=== PATIENT | female | born 1950 | race Caucasian/White ===

== ENCOUNTER → 2016-05-16 | Outpatient (CLI) | payer MEDICARE, OTHER ==
[2016-05-16 12:13] LABS: Basophils # (auto) 0 uL; Basophils % (auto) 0.5 % (0.0-2.0); Eosinophils # (auto) 0.1 uL; Hemoglobin 14.1 g/dL (12.2-16.2); Lymphocytes # (auto) 1.6 uL; Lymphocytes % (auto) 24.7 % (10.0-50.0); Mean Corpuscular Hemoglobin 31.1 pg (28.0-32.0); Mean Corpuscular Hgb Conc. 32.7 g/dL (32.0-36.0); Mean Corpuscular Volume 95.2 fL (80.0-100.0); Mean Platelet Volume 10.3 fL (7.4-10.4); Monocytes # (auto) 0.5 uL; Monocytes % (auto) 7.1 % (0.0-12.0); Neutrophils # (auto) 4.3 uL; Neutrophils % (auto) 65.7 % (37.0-80.0); Platelet Count (auto) 275 10^3/uL (140-450); Red Cell Distribution Width 13.9 % (11.6-16.0); SUSPECT VIEW TRANSMISSION; White Blood Cell 6.6 10^3/uL (4.4-10.8)
[2016-05-16 14:30] LABS: Albumin 4.1 g/dL (3.4-5.0); BUN/Creatinine Ratio 29.1; Bilirubin, Direct 0.2 mg/dL (0-0.2); Calcium 10.3 mg/dL (8.5-10.1); Potassium 4.5 mmol/L (3.5-5.1)
== END | disposition home or self-care (01) ==
LOC: LAB 08:31
PROVIDERS: ATTEND Internal Medicine Cardiovascular Disease
DX: I10 Essential (primary) hypertension (principal); E78.00 Pure hypercholesterolemia, unspecified; K74.1 Hepatic sclerosis; E11.9 Type 2 diabetes mellitus without complications; E03.9 Hypothyroidism, unspecified; D64.9 Anemia, unspecified; E55.9 Vitamin D deficiency, unspecified; N39.0 Urinary tract infection, site not specified
CPT/HCPCS: 36415; 80048; 80061; 80076; 82306; 83036; 84443; 85025

== ENCOUNTER → 2017-05-08 | Outpatient (CLI) | payer MEDICARE ==
[2017-05-08 12:26] LABS: Basophils # (auto) 0 uL; Basophils % (auto) 0.6 % (0.0-2.0); Eosinophils # (auto) 0.3 uL; Eosinophils % (auto) 3.9 % (0.0-7.0); Hemoglobin 14.8 g/dL (12.2-16.2); Lymphocytes # (auto) 1.8 uL; Lymphocytes % (auto) 28.4 % (10.0-50.0); Mean Corpuscular Hemoglobin 33.1 pg (28.0-32.0); Mean Corpuscular Hgb Conc. 33.6 g/dL (32.0-36.0); Mean Corpuscular Volume 98.4 fL (80.0-100.0); Monocytes # (auto) 0.4 uL; Monocytes % (auto) 6.1 % (0.0-12.0); Nucleated Red Blood Cells % 0.7 %; Platelet Count (auto) 234 10^3/uL (140-450); Red Blood Cells 4.47 10^6/uL (4.0-5.20); Red Cell Distribution Width 13.3 % (11.8-14.3); White Blood Cell 6.5 10^3/uL (4.4-10.8)
[2017-05-08 12:41] LABS: Albumin 4.1 g/dL (3.4-5.0); Bilirubin, Total 0.8 mg/dL (0.2-1.0); Calcium 9.2 mg/dL (8.5-10.1); Potassium 4.3 mmol/L (3.5-5.1); Total Protein 7.7 g/dL (6.4-8.2)
[2017-05-08 13:06] LABS: Free T4 (Free Thyroxine) 1.04 ng/dL (0.89-1.76)
== END | disposition home or self-care (01) ==
LOC: CHF HDHVI 08:08
PROVIDERS: ATTEND Internal Medicine Cardiovascular Disease
DX: E78.5 Hyperlipidemia, unspecified (principal); D64.9 Anemia, unspecified; I10 Essential (primary) hypertension; E03.9 Hypothyroidism, unspecified; E55.9 Vitamin D deficiency, unspecified; E11.9 Type 2 diabetes mellitus without complications; D51.9 Vitamin B12 deficiency anemia, unspecified; K74.1 Hepatic sclerosis
CPT/HCPCS: 36415; 80053; 80061; 82306; 82607; 83036; 84439; 84443; 85025

== ENCOUNTER → 2018-04-01 | Outpatient (CLI) | payer MEDICARE | END | disposition home or self-care (01) | LOC: Rad HDHVI 11:05 | PROVIDERS: ATTEND Internal Medicine Cardiovascular Disease | DX: I34.0 Nonrheumatic mitral (valve) insufficiency (principal); I11.9 Hypertensive heart disease without heart failure; Z95.0 Presence of cardiac pacemaker | CPT/HCPCS: 93306 ==

== ENCOUNTER → 2018-04-09 | Outpatient (CLI) | payer MEDICARE ==
[~2018-04-09] VITALS: Ht 167.6 cm; Wt 124.7 kg
[~2018-04-09] MED LIST: ADENOSINE 105 MG in GIVE UN-DILUTED 0 ML IV ONE; ADENOSINE 90 MG/30 ML INJ IV ONE
[2018-04-09 12:17] LABS: Basophils # (auto) 0.1 uL; Eosinophils # (auto) 0.1 uL; Eosinophils % (auto) 1.8 % (0.0-7.0); Hematocrit 42.1 % (36.0-46.0); Hemoglobin 13.9 g/dL (12.2-16.2); Lymphocytes # (auto) 1.2 uL; Lymphocytes % (auto) 20.8 % (10.0-50.0); Mean Corpuscular Hemoglobin 32.5 pg (28.0-32.0); Mean Corpuscular Volume 98.5 fL (80.0-100.0); Monocytes # (auto) 0.4 uL; Monocytes % (auto) 7.8 % (0.0-12.0); Neutrophils # (auto) 3.8 uL; Neutrophils % (auto) 68.6 % (37.0-80.0); Nucleated Red Blood Cells % 0.2 %; Platelet Count (auto) 184 10^3/uL (140-450); Red Blood Cells 4.27 10^6/uL (4.0-5.20); Red Cell Distribution Width 13.7 % (11.8-14.3); White Blood Cell 5.6 10^3/uL (4.4-10.8)
[2018-04-09 12:18] LABS: Urine Blood Negative /uL (Negative); Urine Specific Gravity 1.025 (1.001-1.035)
[2018-04-09 12:32] LABS: Potassium 4.3 mmol/L (3.5-5.1)
[2018-04-09 12:34] LABS: Free T4 (Free Thyroxine) 1.41 ng/dL (0.89-1.76)
[2018-04-09 12:46] LABS: BUN/Creatinine Ratio 27.3; Bilirubin, Total 0.7 mg/dL (0.2-1.0); Calcium 9.4 mg/dL (8.5-10.1); Total Protein 7.6 g/dL (6.4-8.2)
== END | disposition home or self-care (01) ==
LOC: Rad HDHVI 08:25
PROVIDERS: ATTEND Internal Medicine Cardiovascular Disease
DX: I10 Essential (primary) hypertension (principal); E78.5 Hyperlipidemia, unspecified; F41.8 Other specified anxiety disorders; E03.9 Hypothyroidism, unspecified; E11.9 Type 2 diabetes mellitus without complications; E55.9 Vitamin D deficiency, unspecified; D51.9 Vitamin B12 deficiency anemia, unspecified; N39.0 Urinary tract infection, site not specified; Z95.0 Presence of cardiac pacemaker; Z68.41 Body mass index [BMI] 40.0-44.9, adult
CPT/HCPCS: 36415; 78452; 80053; 80061; 81003; 82306; 82607; 83036; 84439; 84443; 85025; 87086; 93005; 96374; 96375; A9500; J0153

== ENCOUNTER → 2018-05-02 | Outpatient (CLI) | payer MEDICARE ==
[~2018-05-02] MED LIST changes: -ADENOSINE 105 MG in GIVE UN-DILUTED 0 ML IV ONE; -ADENOSINE 90 MG/30 ML INJ IV ONE; +ATOR20TA PO; +LISI-285 PO; +RIVA20TA PO; +SERT-274 PO
[2018-05-02 10:27] VITALS: BP 148/78
[2018-05-02 10:43] VITALS: BP 160/86
--- NOTE | 2018-05-02 10:43 | NUR ---
Pre-Op Discharge Summary: See e-MAR for any medications given for this visit. Pre-op orders received and carried out per MD of EKG, LABS and chest xrays. Patient given a copy of EKG with instructions to go to [facility] out patient for further follow up care.
[2018-05-02 11:28] LABS: Basophils # (auto) 0 uL; Basophils % (auto) 0.4 % (0.0-2.0); Eosinophils # (auto) 0.2 uL; Eosinophils % (auto) 2.2 % (0.0-7.0); Hematocrit 43.4 % (36.0-46.0); Hemoglobin 14.4 g/dL (12.2-16.2); Lymphocytes # (auto) 1.7 uL; Lymphocytes % (auto) 22.9 % (10.0-50.0); Mean Corpuscular Hemoglobin 32.7 pg (28.0-32.0); Mean Corpuscular Hgb Conc. 33.2 g/dL (32.0-36.0); Mean Corpuscular Volume 98.4 fL (80.0-100.0); Monocytes # (auto) 0.4 uL; Monocytes % (auto) 5.4 % (0.0-12.0); Neutrophils # (auto) 5.2 uL; Neutrophils % (auto) 69.1 % (37.0-80.0); Nucleated Red Blood Cells % 0.2 %; Platelet Count (auto) 217 10^3/uL (140-450); Red Blood Cells 4.41 10^6/uL (4.0-5.20); Red Cell Distribution Width 13.8 % (11.8-14.3); White Blood Cell 7.6 10^3/uL (4.4-10.8)
[2018-05-02 11:36] LABS: BUN/Creatinine Ratio 22.1; Calcium 9.2 mg/dL (8.5-10.1); Potassium 4.5 mmol/L (3.5-5.1)
[2018-05-02 11:53] LABS: INR 1.15 (0.9-1.15); Partial Thromboplastin Time 35.5 sec (23.78-33.04); Prothrombin Time 12.2 sec (9.27-12.13)
== END | disposition home or self-care (01) ==
LOC: Rad HDHVI 10:03
PROVIDERS: ATTEND Internal Medicine Cardiovascular Disease
DX: Z01.818 Encounter for other preprocedural examination (principal); D64.9 Anemia, unspecified; R79.1 Abnormal coagulation profile; I70.0 Atherosclerosis of aorta; E78.5 Hyperlipidemia, unspecified; I11.9 Hypertensive heart disease without heart failure
CPT/HCPCS: 36415; 71046; 80048; 85025; 85610; 85730; 93005; G0463

== ENCOUNTER 2018-05-08 08:54 | Day surgery (SDC) | payer MEDICARE ==
[~2018-05-08] VITALS: Ht 167.6 cm; Wt 127.0 kg
[2018-05-08] MEDS ORDERED: LIDOCAINE 2%HCL (LOCAL ANESTH.) INJ 20ML MDV ONE (12:10)
[2018-05-08] MEDS ORDERED: IOHEXOL 350 MG/ML 100ML IJ ONE (12:10)
[2018-05-08] MEDS ORDERED: ANGIOMAX 250 MG VIAL IV ONE (12:15)
[2018-05-08] MEDS ORDERED: fentaNYL CITRATE 100 MCG/2 ML VL ONE (12:15)
[2018-05-08] MEDS ORDERED: MIDAZOLAM HCL 1MG/1ML-2 ML VIAL ONE (12:16)
[2018-05-08] MEDS ORDERED: SODIUM CHL 0.9% 0 ML ONE (12:16)
== END 2018-05-08 15:10 | disposition home or self-care (01) ==
LOC: CATH 08:54
PROVIDERS: ATTEND Internal Medicine Cardiovascular Disease
DX: I25.10 Atherosclerotic heart disease of native coronary artery without angina pectoris (principal); I48.91 Unspecified atrial fibrillation; I10 Essential (primary) hypertension; H33.8 Other retinal detachments; Z98.890 Other specified postprocedural states
CPT/HCPCS: 93458; A6257; C1760; C1894; J1644; J2250; J3010; J7030; Q9967; 99152

== ENCOUNTER → 2019-03-09 | Outpatient (CLI) | payer MEDICARE ==
[2019-03-09 12:24] LABS: Urine Blood Negative /uL (Negative); Urine Specific Gravity 1.012 (1.001-1.035)
[2019-03-09 12:33] LABS: Basophils # (auto) 0 uL; Basophils % (auto) 0.5 % (0.0-2.0); Eosinophils # (auto) 0.1 uL; Eosinophils % (auto) 1.7 % (0.0-7.0); Hematocrit 41.6 % (36.0-46.0); Hemoglobin 13.9 g/dL (12.2-16.2); Lymphocytes # (auto) 1.6 uL; Lymphocytes % (auto) 25.1 % (10.0-50.0); Mean Corpuscular Hemoglobin 33.1 pg (28.0-32.0); Mean Corpuscular Hgb Conc. 33.4 g/dL (32.0-36.0); Mean Corpuscular Volume 99.1 fL (80.0-100.0); Monocytes # (auto) 0.4 uL; Monocytes % (auto) 6.6 % (0.0-12.0); Neutrophils # (auto) 4.1 uL; Neutrophils % (auto) 66.1 % (37.0-80.0); Nucleated Red Blood Cells % 0.2 %; Platelet Count (auto) 208 10^3/uL (140-450); Red Cell Distribution Width 13.4 % (11.8-14.3); White Blood Cell 6.2 10^3/uL (4.4-10.8)
[2019-03-09 12:46] LABS: Free T4 (Free Thyroxine) 1.23 ng/dL (0.89-1.76)
[2019-03-09 12:48] LABS: Potassium 4.7 mmol/L (3.5-5.1)
[2019-03-09 12:58] LABS: Albumin 3.9 g/dL (3.4-5.0); BUN/Creatinine Ratio 37.7; Bilirubin, Total 0.5 mg/dL (0.2-1.0); Calcium 9.7 mg/dL (8.5-10.1); Total Protein 7.5 g/dL (6.4-8.2)
== END | disposition home or self-care (01) ==
LOC: LAB 08:44
PROVIDERS: ATTEND Internal Medicine Cardiovascular Disease
DX: E03.9 Hypothyroidism, unspecified (principal); K90.9 Intestinal malabsorption, unspecified; N39.0 Urinary tract infection, site not specified; D51.9 Vitamin B12 deficiency anemia, unspecified; Z79.899 Other long term (current) drug therapy
CPT/HCPCS: 36415; 80053; 80061; 81003; 82306; 82607; 83036; 84439; 84443; 85025

== ENCOUNTER → 2019-11-06 | Outpatient (CLI) | payer MEDICARE ==
[~2019-11-06] MED LIST changes: +LISI-706 PO
[2019-11-06 10:40] VITALS: BP 135/59
[2019-11-06 11:01] VITALS: BP 140/51
[2019-11-06 12:36] LABS: Calcium 9.2 mg/dL (8.5-10.1); Potassium 4.3 mmol/L (3.5-5.1)
[2019-11-06 12:38] LABS: Basophils # (auto) 0 10 ^3/uL (0-0.2); Basophils % (auto) 0.4 % (0.0-2.0); Eosinophils # (auto) 0.1 10 ^3/uL (0-0.8); Hematocrit 41.8 % (36.0-46.0); Hemoglobin 14.2 g/dL (12.2-16.2); Lymphocytes # (auto) 2.1 10 ^3/uL (0.4-5.4); Mean Corpuscular Hgb Conc. 33.9 g/dL (32.0-36.0); Mean Corpuscular Volume 100.3 fL (80.0-100.0); Monocytes # (auto) 0.5 10 ^3/uL (0-1.3); Monocytes % (auto) 5.9 % (0.0-12.0); Neutrophils # (auto) 5.6 10 ^3/uL (1.6-8.6); Neutrophils % (auto) 67.7 % (37.0-80.0); Nucleated Red Blood Cells % 0.1 %; Platelet Count (auto) 223 10^3/uL (140-450); Red Blood Cells 4.16 10^6/uL (4.0-5.20); Red Cell Distribution Width 13.4 % (11.8-14.3); White Blood Cell 8.2 10^3/uL (4.4-10.8)
[2019-11-06 12:40] LABS: BUN/Creatinine Ratio 22.5
[2019-11-06 12:56] LABS: INR 1.35 (0.9-1.15); Partial Thromboplastin Time 39.6 sec (23.0-31.2)
== END | disposition home or self-care (01) ==
LOC: Rad HDHVI 10:12
PROVIDERS: ATTEND Internal Medicine Cardiovascular Disease
DX: Z01.812 Encounter for preprocedural laboratory examination (principal); I70.0 Atherosclerosis of aorta; I10 Essential (primary) hypertension; Z45.018 Encounter for adjustment and management of other part of cardiac pacemaker; I48.91 Unspecified atrial fibrillation
CPT/HCPCS: 36415; 71046; 80048; 85025; 85610; 85730; 93005; G0463

== ENCOUNTER 2019-11-12 07:54 | Day surgery (SDC) | payer MEDICARE ==
[~2019-11-12] VITALS: Ht 167.6 cm; Wt 129.3 kg
[~2019-11-12 07:54] MED LIST changes: -LISI-285 PO
[2019-11-12] MEDS ORDERED: VANCOMYCIN 1GM/250ML 250 ML IV ONE ×2 (08:45→10:41)
[2019-11-12] MEDS ORDERED: LIDOCAINE 2%HCL (LOCAL ANESTH.) INJ 20ML MDV ONE (10:37)
[2019-11-12] MEDS ORDERED: diphenhdrAMINE HCL 50 MG/1 ML VL ONE (10:49)
[2019-11-12] MEDS ORDERED: VANCOMYCIN HCL 1000 MG VL ONE (10:49)
[2019-11-12] MEDS ORDERED: MIDAZOLAM HCL 1MG/1ML-2 ML VIAL ONE (10:50)
[2019-11-12] MEDS ORDERED: fentaNYL CITRATE 100 MCG/2 ML VL ONE (10:50)
[2019-11-12] MEDS ORDERED: HYDROcodone-ACET 5/325MG TAB PO PRN (12:15)
[2019-11-12] MEDS ORDERED: ceFAZolin 1GM/50ML 50 ML IV SCH (12:15)
[2019-11-12] MEDS ORDERED: ONDANSETRON HCL 4 MG/2 ML VIAL IV PRN (12:15)
[2019-11-12] MEDS ORDERED: ACETAMINOPHEN 325 MG TAB PO PRN (12:15)
== END 2019-11-12 13:39 | disposition home or self-care (01) ==
LOC: CATH 07:54
PROVIDERS: ATTEND Internal Medicine Cardiovascular Disease
DX: Z45.010 Encounter for checking and testing of cardiac pacemaker pulse generator [battery] (principal); I11.9 Hypertensive heart disease without heart failure; I49.5 Sick sinus syndrome; I48.20 Chronic atrial fibrillation, unspecified; E78.5 Hyperlipidemia, unspecified; E66.9 Obesity, unspecified; G47.30 Sleep apnea, unspecified; E11.9 Type 2 diabetes mellitus without complications; M19.90 Unspecified osteoarthritis, unspecified site; Z98.890 Other specified postprocedural states; Z20.828 Contact with and (suspected) exposure to other viral communicable diseases
CPT/HCPCS: 33228; C1785; J0690; J2250; J3010; J3370; U0003; 99152; 99153

== ENCOUNTER → 2019-11-24 | Outpatient (CLI) | payer MEDICARE | END | disposition home or self-care (01) | LOC: Rad HDHVI 14:59 | PROVIDERS: ATTEND Internal Medicine Cardiovascular Disease | DX: I48.19 Other persistent atrial fibrillation (principal); R06.02 Shortness of breath | CPT/HCPCS: 93306 ==

== ENCOUNTER → 2019-11-26 | Outpatient (CLI) | payer MEDICARE ==
[~2019-11-26] VITALS: Ht 167.6 cm; Wt 132.9 kg
[~2019-11-26] MED LIST changes: +ADENOSINE 112 MG in GIVE UN-DILUTED 0 ML IV ONE; +ADENOSINE 90 MG/30 ML INJ IV ONE
== END | disposition home or self-care (01) ==
LOC: Rad HDHVI 13:31
PROVIDERS: ATTEND Internal Medicine Cardiovascular Disease
DX: I11.0 Hypertensive heart disease with heart failure (principal); I50.43 Acute on chronic combined systolic (congestive) and diastolic (congestive) heart failure; I48.19 Other persistent atrial fibrillation; I49.5 Sick sinus syndrome; E78.5 Hyperlipidemia, unspecified; R06.02 Shortness of breath; Z95.0 Presence of cardiac pacemaker; Z82.49 Family history of ischemic heart disease and other diseases of the circulatory system
CPT/HCPCS: 78452; 93005; 96374; 96375; A9500; J0153

== ENCOUNTER → 2022-03-06 | Outpatient (CLI) | payer MEDICARE ==
[~2022-03-06] MED LIST changes: -ADENOSINE 112 MG in GIVE UN-DILUTED 0 ML IV ONE; -ADENOSINE 90 MG/30 ML INJ IV ONE; -SERT-274 PO; +SERT50TA19 PO
== END | disposition home or self-care (01) ==
LOC: Rad HDHVI 10:00
PROVIDERS: ATTEND Internal Medicine Cardiovascular Disease
DX: I08.1 Rheumatic disorders of both mitral and tricuspid valves (principal); R06.02 Shortness of breath; I10 Essential (primary) hypertension
CPT/HCPCS: 93306

== ENCOUNTER → 2022-03-20 | Outpatient (CLI) | payer MEDICARE ==
[2022-03-20 12:01] LABS: Basophils # (auto) 0 10 ^3/uL (0-0.2); Basophils % (auto) 0.5 % (0.0-2.0); Eosinophils # (auto) 0.1 10 ^3/uL (0-0.8); Eosinophils % (auto) 1.9 % (0.0-7.0); Hemoglobin 14.2 g/dL (12.2-16.2); Lymphocytes % (auto) 27.4 % (10.0-50.0); Mean Corpuscular Hemoglobin 32.5 pg (28.0-32.0); Mean Corpuscular Volume 98.6 fL (80.0-100.0); Monocytes # (auto) 0.5 10 ^3/uL (0-1.3); Monocytes % (auto) 6.3 % (0.0-12.0); Neutrophils # (auto) 4.7 10 ^3/uL (1.6-8.6); Neutrophils % (auto) 63.9 % (37.0-80.0); Nucleated Red Blood Cells % 0.1 %; Red Blood Cells 4.37 10^6/uL (4.0-5.20); Red Cell Distribution Width 13.8 % (11.8-14.3); White Blood Cell 7.3 10^3/uL (4.4-10.8)
[2022-03-20 13:50] LABS: Free T4 (Free Thyroxine) 1.37 ng/dL (0.89-1.76)
[2022-03-20 15:15] LABS: Potassium 4.2 mmol/L (3.5-5.1)
[2022-03-20 15:33] LABS: BUN/Creatinine Ratio 27.1; Bilirubin, Total 0.6 mg/dL (0.2-1.0); Calcium 9.6 mg/dL (8.5-10.1); Total Protein 7.1 g/dL (6.4-8.2)
== END | disposition home or self-care (01) ==
LOC: LAB 08:13
PROVIDERS: ATTEND Internal Medicine Cardiovascular Disease
DX: I50.23 Acute on chronic systolic (congestive) heart failure (principal); E55.9 Vitamin D deficiency, unspecified
CPT/HCPCS: 80053; 80061; 82306; 82607; 83036; 84439; 84443

== ENCOUNTER → 2023-03-04 | Outpatient (CLI) | payer MEDICARE ==
[~2023-03-04] VITALS: Ht 167.6 cm; Wt 129.3 kg
[~2023-03-04] MED LIST changes: +ADENOSINE 109 MG in GIVE UN-DILUTED 0 ML IV ONE; +ADENOSINE 90 MG/30 ML INJ IV ONE; +SERT-206 PO; -SERT50TA19 PO
== END | disposition home or self-care (01) ==
LOC: Rad HDHVI 09:58
PROVIDERS: ATTEND Internal Medicine Cardiovascular Disease
DX: I11.0 Hypertensive heart disease with heart failure (principal); I50.33 Acute on chronic diastolic (congestive) heart failure; R06.02 Shortness of breath; I48.20 Chronic atrial fibrillation, unspecified; I49.5 Sick sinus syndrome; I25.10 Atherosclerotic heart disease of native coronary artery without angina pectoris; E78.00 Pure hypercholesterolemia, unspecified; Z82.49 Family history of ischemic heart disease and other diseases of the circulatory system
CPT/HCPCS: 78452; 93005; 96374; 96375; A9500; J0153

== ENCOUNTER → 2024-04-02 | Outpatient (CLI) | payer MEDICARE ==
[~2024-04-02] MED LIST changes: -ADENOSINE 109 MG in GIVE UN-DILUTED 0 ML IV ONE; -ADENOSINE 90 MG/30 ML INJ IV ONE
== END | disposition home or self-care (01) ==
LOC: Rad HDHVI 12:59
PROVIDERS: ATTEND Internal Medicine Cardiovascular Disease
DX: I11.0 Hypertensive heart disease with heart failure (principal); I50.33 Acute on chronic diastolic (congestive) heart failure
CPT/HCPCS: 93306

== ENCOUNTER → 2024-05-06 | Outpatient (CLI) | payer MEDICARE | END | disposition home or self-care (01) | LOC: Rad HDHVI 13:55 | PROVIDERS: ATTEND Internal Medicine Cardiovascular Disease | DX: R07.89 Other chest pain (principal); I10 Essential (primary) hypertension; E78.5 Hyperlipidemia, unspecified | CPT/HCPCS: 93880 ==

== ENCOUNTER 2024-12-01 09:01 | Outpatient (CLI) | payer MEDICARE ==
[~2024-12-01] VITALS: Ht 165.1 cm; Wt 113.4 kg
[2024-12-01] MEDS ORDERED: ADENOSINE 90 MG/30 ML INJ IV ONE (09:28)
[2024-12-01] MEDS ORDERED: ADENOSINE 65 MG in GIVE UN-DILUTED 0 ML IV ONE (13:15)
[2024-12-01] MEDS ORDERED: ADENOSINE 95 MG in GIVE UN-DILUTED 0 ML IV ONE (13:45)
== END 2024-12-01 17:00 | disposition home or self-care (01) ==
LOC: Rad HDHVI 09:01
PROVIDERS: ATTEND Internal Medicine Cardiovascular Disease
DX: Z13.6 Encounter for screening for cardiovascular disorders (principal); I11.0 Hypertensive heart disease with heart failure; I50.33 Acute on chronic diastolic (congestive) heart failure; I48.0 Paroxysmal atrial fibrillation; I48.20 Chronic atrial fibrillation, unspecified; I49.5 Sick sinus syndrome; E78.00 Pure hypercholesterolemia, unspecified; R00.2 Palpitations; Z95.0 Presence of cardiac pacemaker; Z82.49 Family history of ischemic heart disease and other diseases of the circulatory system
CPT/HCPCS: 78452; 93017; A9500; J0153